=== PATIENT | female | born 2000 | race Caucasian/White ===

== ENCOUNTER → 2019-08-18 | Emergency (ER) | payer MEDICAID | END | disposition left against medical advice (07) | LOC: ER 12:08 | DX: Z00.00 Encounter for general adult medical examination without abnormal findings (principal); Z53.21 Procedure and treatment not carried out due to patient leaving prior to being seen by health care provider ==

== ENCOUNTER 2020-03-14 10:58 | Observation (INO) | payer BC, MEDICAID ==
[2020-03-14] MEDS ORDERED: PREN-96 PO (12:33)
== END 2020-03-14 13:05 | disposition home or self-care (01) | DRG 833 ==
LOC: LDRP 10:58
PROVIDERS: ADMIT Specialist; ATTEND Specialist
DX: O36.5930 Maternal care for other known or suspected poor fetal growth, third trimester, not applicable or unspecified (principal); Z3A.36 36 weeks gestation of pregnancy
CPT/HCPCS: 59025; 76818; 81002; G0378

== ENCOUNTER 2020-03-19 08:31 | Observation (INO) | payer BC ==
[~2020-03-19 08:31] MED LIST: PREN-96 PO
== END 2020-03-19 10:16 | disposition home or self-care (01) | DRG 833 ==
LOC: LDRP 08:31
PROVIDERS: ADMIT Specialist; ATTEND Specialist
DX: O36.5930 Maternal care for other known or suspected poor fetal growth, third trimester, not applicable or unspecified (principal); Z3A.37 37 weeks gestation of pregnancy
CPT/HCPCS: 59025; 76818; 81002; G0378

== ENCOUNTER 2020-03-22 08:57 | Observation (INO) | payer BC | END 2020-03-22 10:57 | disposition home or self-care (01) | DRG 833 | LOC: LDRP 08:57 | PROVIDERS: ADMIT Specialist; ATTEND Specialist | DX: O36.5930 Maternal care for other known or suspected poor fetal growth, third trimester, not applicable or unspecified (principal); O62.9 Abnormality of forces of labor, unspecified; O26.893 Other specified pregnancy related conditions, third trimester; N89.8 Other specified noninflammatory disorders of vagina; Z3A.37 37 weeks gestation of pregnancy | CPT/HCPCS: 59025; 76818; 81002; G0378 ==

== ENCOUNTER 2020-03-25 10:50 | Observation (INO) | payer BC | END 2020-03-25 12:20 | disposition home or self-care (01) | DRG 833 | LOC: LDRP 10:50 | PROVIDERS: ADMIT Specialist; ATTEND Specialist | DX: O36.5930 Maternal care for other known or suspected poor fetal growth, third trimester, not applicable or unspecified (principal); O62.9 Abnormality of forces of labor, unspecified; Z3A.37 37 weeks gestation of pregnancy; Z87.891 Personal history of nicotine dependence | CPT/HCPCS: 59025; 76818; 81002; G0378 ==

== ENCOUNTER 2020-03-28 08:58 | Observation (INO) | payer BC | END 2020-03-28 10:07 | disposition home or self-care (01) | LOC: LDRP 08:58 | PROVIDERS: ADMIT Specialist; ATTEND Specialist | DX: O36.5930 Maternal care for other known or suspected poor fetal growth, third trimester, not applicable or unspecified (principal); O34.63 Maternal care for abnormality of vagina, third trimester; N89.8 Other specified noninflammatory disorders of vagina; Z87.891 Personal history of nicotine dependence; Z3A.38 38 weeks gestation of pregnancy | CPT/HCPCS: 59025; 76818; 81002; G0378 ==

== ENCOUNTER 2020-04-02 09:32 | Observation (INO) | payer BC ==
[~2020-04-02] VITALS: Ht 144.8 cm; Wt 68.0 kg
[2020-04-02] MEDS ORDERED: ACETAMINOPHEN 325 MG TAB PO ONE (10:45)
== END 2020-04-02 11:20 | disposition home or self-care (01) ==
LOC: LDRP 09:32
PROVIDERS: ADMIT Specialist; ATTEND Specialist
DX: O36.5931 Maternal care for other known or suspected poor fetal growth, third trimester, fetus 1 (principal); O26.893 Other specified pregnancy related conditions, third trimester; R51 Headache; Z3A.39 39 weeks gestation of pregnancy
CPT/HCPCS: 59025; 76818; 81002; G0378

== ENCOUNTER 2020-04-05 08:42 | Observation (INO) | payer BC | END 2020-04-05 10:00 | disposition home or self-care (01) | LOC: LDRP 08:42 | PROVIDERS: ADMIT Specialist; ATTEND Specialist | DX: O36.5930 Maternal care for other known or suspected poor fetal growth, third trimester, not applicable or unspecified (principal); O26.893 Other specified pregnancy related conditions, third trimester; R51 Headache; Z3A.39 39 weeks gestation of pregnancy | CPT/HCPCS: 59025; 76818; G0378; 81002 ==

== ENCOUNTER 2020-04-09 14:07 | Observation (INO) | payer BC | END 2020-04-09 15:20 | disposition home or self-care (01) | LOC: LDRP 14:07 | PROVIDERS: ADMIT Specialist; ATTEND Specialist | DX: O36.5930 Maternal care for other known or suspected poor fetal growth, third trimester, not applicable or unspecified (principal); Z3A.40 40 weeks gestation of pregnancy | CPT/HCPCS: 59025; 76818; 81002; G0378 ==

== ENCOUNTER 2020-04-11 13:20 | Observation (INO) | payer BC | END 2020-04-11 16:15 | disposition home or self-care (01) | LOC: LDRP 13:20 | PROVIDERS: ADMIT Specialist; ATTEND Specialist | DX: O36.5930 Maternal care for other known or suspected poor fetal growth, third trimester, not applicable or unspecified (principal); O48.0 Post-term pregnancy; Z3A.40 40 weeks gestation of pregnancy | CPT/HCPCS: 59025; 76818; 81002; G0378 ==

== ENCOUNTER 2020-04-12 09:06 | Observation (INO) | payer BC | END 2020-04-12 10:34 | disposition home or self-care (01) | LOC: LDRP 09:06 | PROVIDERS: ADMIT Specialist; ATTEND Specialist | DX: O48.0 Post-term pregnancy (principal); Z3A.40 40 weeks gestation of pregnancy | CPT/HCPCS: 59025; 76818; 81002; G0378 ==

== ENCOUNTER 2020-04-14 05:02 | Inpatient (IN) | payer BC ==
[~2020-04-14] VITALS: Ht 144.8 cm; Wt 68.0 kg
[2020-04-14] MEDS ORDERED: LACT. RINGERS/OXYTOCIN 20UNITS 1,000 ML IV SCH (05:17)
[2020-04-14] MEDS ORDERED: DERMOPLAST 60ML BOTTLE TOP PRN (05:30)
[2020-04-14] MEDS ORDERED: PHISODERM TOP SOLN 240ML BTL TOP PRN (05:30)
[2020-04-14] MEDS ORDERED: LIDOCAINE 2%HCL (LOCAL ANESTH.) INJ 20ML MDV ID ONE (05:30)
[2020-04-14] MEDS ORDERED: WITCH HAZEL-GLYCERIN PAD TOP PRN (05:30)
[2020-04-14] MEDS: LACTATED RINGER'S 1,000 ML IV SCH ×3 (05:32→23:47)
[2020-04-14 05:52] LABS: Basophils # (auto) 0 10 ^3/uL (0-0.2); Basophils % (auto) 0.4 % (0.0-2.0); Eosinophils # (auto) 0 10 ^3/uL (0-0.8); Eosinophils % (auto) 0.5 % (0.0-7.0); Hematocrit 38.5 % (36.0-46.0); Hemoglobin 13.1 g/dL (12.2-16.2); Lymphocytes # (auto) 1.8 10 ^3/uL (0.4-5.4); Lymphocytes % (auto) 19.2 % (10.0-50.0); Mean Corpuscular Hemoglobin 31.8 pg (28.0-32.0); Mean Corpuscular Hgb Conc. 34.1 g/dL (32.0-36.0); Mean Corpuscular Volume 93.1 fL (80.0-100.0); Monocytes # (auto) 0.6 10 ^3/uL (0-1.3); Monocytes % (auto) 6.9 % (0.0-12.0); Neutrophils # (auto) 6.9 10 ^3/uL (1.6-8.6); Nucleated Red Blood Cells % 0.1 %; Platelet Count (auto) 258 10^3/uL (140-450); Red Blood Cells 4.13 10^6/uL (4.0-5.20); Red Cell Distribution Width 12.7 % (11.8-14.3); White Blood Cell 9.4 10^3/uL (4.4-10.8)
[2020-04-14 05:58] LABS: Urine Bacteria NONE SEEN /hpf (None Seen); Urine Blood Negative /uL (Negative); Urine Specific Gravity 1.012 (1.001-1.035); Urine WBC <1 /hpf (0 - 5)
[2020-04-14 06:08] LABS: INR 0.9 (0.9-1.15); Partial Thromboplastin Time 25.2 sec (23.0-31.2)
[2020-04-14 06:20] LABS: Calcium 8.7 mg/dL (8.5-10.1); Potassium 3.4 mmol/L (3.5-5.1)
[2020-04-14 06:22] LABS: Alcohol, Urine < 3.0 mg/dL (0-10); Amphetamine Screen, Urine NEGATIVE (NEGATIVE); Barbiturate Scree,Urine NEGATIVE (NEGATIVE); Benzodiazephine Screen, Urine NEGATIVE (NEGATIVE); Cannabinoid Screen, Urine POSITIVE (NEGATIVE); Cocaine Screen, Urine NEGATIVE (NEGATIVE); Opiate Scree,Urine NEGATIVE (NEGATIVE); Phencyclidine Screen, Urine NEGATIVE (NEGATIVE)
[2020-04-14 06:24] LABS: BUN/Creatinine Ratio 17.7; Bilirubin, Total 0.3 mg/dL (0.2-1.0); Total Protein 6.9 g/dL (6.4-8.2); Uric Acid 3.2 mg/dL (2.6-6.0)
[2020-04-14] MEDS: miSOPROStol 50 MCG per PRE-CUT 1/2 TAB PO PRN ×2 (07:38→11:48)
[2020-04-14] MEDS ORDERED: LACTATED RINGER'S 1,000 ML IV ONE (18:41)
[2020-04-14] MEDS ORDERED: ePHEDrine SULFATE 50 MG/ML AMP IV ONE ×2 (18:45→20:15)
[2020-04-14] MEDS ORDERED: NALOXONE HCL 0.4 MG/ML VIAL IV ONE ×2 (18:45→20:15)
[2020-04-14] MEDS ORDERED: ROPIVACAINE HCL 100 ML EPI SCH ×3 (18:45→20:15)
[2020-04-14] MEDS ORDERED: SODIUM CHLORIDE 0.9% 500 ML IV PRN (20:09)
[2020-04-15] MEDS ORDERED: TERBUTALINE SULFATE 1 MG/ML 1ML VIAL SC ONE (02:27)
[2020-04-15] MEDS ORDERED: fentaNYL CITRATE 100 MCG/2 ML VL ONE ×2 (04:04→04:13)
[2020-04-15] MEDS ORDERED: MIDAZOLAM HCL 1MG/1ML-2 ML VIAL ONE (04:07)
[2020-04-15] MEDS ORDERED: hydrALAZINE HCL 20 MG/ML VL IV PRN (04:45)
[2020-04-15] MEDS ORDERED: HYDROmorphone HCL 2 MG/ML VL IV PRN (04:45)
[2020-04-15] MEDS ORDERED: ACETAMINOPHEN IV 1000 MG/100ML (10MG/ML) IV PRN (04:45)
[2020-04-15] MEDS ORDERED: ONDANSETRON HCL 4 MG/2 ML VIAL IV PRN ×2 (04:45)
[2020-04-15] MEDS ORDERED: GUM (CHEWING) 1 GUM CHEW CHEW ONE (04:45)
[2020-04-15] MEDS ORDERED: ceFAZolin 1GM/50ML 50 ML IV SCH (04:45)
[2020-04-15] MEDS ORDERED: ePHEDrine SULFATE 50 MG/ML AMP IV PRN (04:45)
[2020-04-15] MEDS: HYDROmorphone HCL 2 MG/ML VL IV PRN ×4 (04:50→05:20)
[2020-04-15 07:22] VITALS: BP 115/59
[2020-04-15 08:25] VITALS: BP 113/61
[2020-04-15] MEDS: LACTATED RINGER'S 1,000 ML IV SCH ×3 (08:30→12:20)
[2020-04-15 10:30] VITALS: BP 116/63
[2020-04-15] MEDS: KETOROLAC TROMETH 30 MG/ML 1ML VIAL IV PRN ×3 (10:45→22:32)
[2020-04-15] MEDS: ceFAZolin 1GM/50ML 50 ML IV SCH ×2 (12:15→19:37)
[2020-04-15 15:29] VITALS: BP 122/71
[2020-04-15 19:00] VITALS: BP 134/78
--- NOTE | 2020-04-15 20:57 | NUR ---
Ambulation: Patient OOB with standby assistance by RN to chair at bedside. Clean gown provided and bed linen changed. Patient ambulated back to bed with steady gait and no distress noted.
[2020-04-15 23:00] VITALS: BP 124/75
[2020-04-16 02:59] VITALS: BP 139/46
[2020-04-16] MEDS: ceFAZolin 1GM/50ML 50 ML IV SCH (03:46)
[2020-04-16] MEDS ORDERED: KETOROLAC TROMETH 30 MG/ML 1ML VIAL IV ONE (04:30)
--- NOTE | 2020-04-16 04:45 | NUR ---
Stevens catheter dc'd Order to discontinue stevens catheter. Stevens dc'd with clean technique following deflation of balloon. Patient tolerated well with no complaints of pain. Continue care.
[2020-04-16 05:06] LABS: RPR Non Reactive (Non Reactive)
[2020-04-16 07:01] VITALS: BP 113/70
--- NOTE | 2020-04-16 07:07 | NUR ---
Ambulation: Patient OOB with standby assistance by RN. Patient ambulated to bathroom with steady gait. Patient able to void without difficulty. [facility] teaching provided with returned demonstration by patient. Patient ambulated back to bed with steady gait and no distress noted.
[2020-04-16 07:23] LABS: Basophils # (auto) 0 10 ^3/uL (0-0.2); Basophils % (auto) 0.2 % (0.0-2.0); Eosinophils # (auto) 0 10 ^3/uL (0-0.8); Eosinophils % (auto) 0.1 % (0.0-7.0); Hematocrit 30.6 % (36.0-46.0); Hemoglobin 10.7 g/dL (12.2-16.2); Lymphocytes # (auto) 1.4 10 ^3/uL (0.4-5.4); Lymphocytes % (auto) 10.8 % (10.0-50.0); Mean Corpuscular Hemoglobin 32.6 pg (28.0-32.0); Mean Corpuscular Volume 93.1 fL (80.0-100.0); Monocytes # (auto) 0.8 10 ^3/uL (0-1.3); Neutrophils # (auto) 10.4 10 ^3/uL (1.6-8.6); Neutrophils % (auto) 82.9 % (37.0-80.0); Platelet Count (auto) 227 10^3/uL (140-450); Red Blood Cells 3.29 10^6/uL (4.0-5.20); White Blood Cell 12.6 10^3/uL (4.4-10.8)
[2020-04-16] MEDS ORDERED: HYDROcodone-ACET 5/325MG TAB PO PRN (07:30)
[2020-04-16] MEDS ORDERED: BISACODYL 10 MG RECT SUPP PR PRN (07:30)
[2020-04-16] MEDS: HYDROcodone-ACET 5/325MG TAB PO PRN ×3 (08:47→21:35)
[2020-04-16] MEDS: DOCUSATE SOD 100 MG CAP PO SCH ×2 (10:03→21:34)
[2020-04-16] MEDS: DOCUSATE CALCIUM 240 MG CAP PO SCH (10:03)
[2020-04-16 10:40] VITALS: BP 103/59
[2020-04-16] MEDS: SIMETHICONE 80 MG CHEWABLE TABLET PO SCH ×3 (12:02→21:34)
[2020-04-16] MEDS: IBUPROFEN 800 MG TAB PO PRN (12:03)
[2020-04-16 15:10] VITALS: BP 120/58
--- NOTE | 2020-04-16 16:07 | NUR ---
REVIEWED VITALS Addendum: 04/16/20 at 1607 by Yvan Ruano RN Amended: Links added.
[2020-04-16 19:00] VITALS: BP 121/61
[2020-04-16 22:40] VITALS: BP 121/70
[2020-04-17] VITALS (7 sets, daily range): BP systolic 121–129; BP diastolic 57–90
[2020-04-17] MEDS: HYDROcodone-ACET 5/325MG TAB PO PRN ×2 (05:30→17:53)
[2020-04-17] MEDS: SIMETHICONE 80 MG CHEWABLE TABLET PO SCH ×4 (05:30→22:16)
[2020-04-17] MEDS: IBUPROFEN 800 MG TAB PO PRN ×2 (10:16→22:16)
[2020-04-17] MEDS: DOCUSATE CALCIUM 240 MG CAP PO SCH (10:16)
[2020-04-17] MEDS: DOCUSATE SOD 100 MG CAP PO SCH ×2 (10:16→22:16)
--- NOTE | 2020-04-17 13:51 | NUR ---
assessment Patient is a 19 year old female who is alert and oriented. Per consult patient is positive for THC and baby is negative. Patient informed me she smoked marijuana twice a week before she delivered due to a real bad headache. Patient informed me she smoked prior to and quit during the . Patient informed me she does not plan to continue to smoke due to she wants to breast feed. FOB was at bedside Jose A Crowder [birth year]. Per Jose A he will be very involved with the baby. Patient informed me she has great family and social support. Patient informed me she has all provisions for the baby. Patient is bonding with baby. I informed patient I would be reporting to CPS. Patient verbalized understanding. Addendum: 04/17/20 at 1400 by Ella Garay Amended: Links added.
--- NOTE | 2020-04-17 19:28 | NUR ---
Ambulation: Patient OOB ambulating in the hallway while pushing in open crib, gait steady. No signs of discomfort noted.
[2020-04-18 03:15] VITALS: BP 119/68
[2020-04-18] MEDS: SIMETHICONE 80 MG CHEWABLE TABLET PO SCH (05:41)
[2020-04-18] MEDS: IBUPROFEN 800 MG TAB PO PRN (05:41)
[2020-04-18 07:30] VITALS: BP 125/76
[2020-04-18 13:15] VITALS: BP 129/76
--- NOTE | 2020-04-18 13:15 | NUR ---
Discharge: Discharge instructions given as ordered. Pt encouraged to follow up with CHOREOGRAPHY DIRECTOR as instructed on 05/02/20 @10:30am. All questions and concerns addressed. Patient verbalized understanding. Medication reconciliation completed and copy given to patient. Patient encouraged to prepare to depart unit. Addendum: 04/18/20 at 1346 by GENESIS GONZALEZ RN Wrong time noted, Discharge time was at 1245 Addendum: 04/18/20 at 1347 by GENESIS GONZALEZ RN Wrong time noted, the right time that instructions were given was 1215
--- NOTE | 2020-04-18 13:38 | NUR ---
Discharge: Patient ambulated to vehicle with all personal belongings, accompanied by staff and family member. No distress noted at time of departure, no adverse changes in status since initial assessment. Addendum: 04/18/20 at 1347 by GENESIS GONZALEZ RN Wrong time noted, actual discharge time was 1238
[2020-04-18 13:48] VITALS: BP 129/76
== END 2020-04-18 12:38 | disposition home or self-care (01) | DRG 788 ==
LOC: LDRP 05:02
PROVIDERS: ADMIT Specialist; ATTEND Specialist
PROC: 10D00Z1 Extraction of Products of Conception, Low, Open Approach (ICD-10-PCS; principal; 2020-04-15 03:35)
DX: O77.0 Labor and delivery complicated by meconium in amniotic fluid (principal); O76 Abnormality in fetal heart rate and rhythm complicating labor and delivery; O62.1 Secondary uterine inertia; Z20.828 Contact with and (suspected) exposure to other viral communicable diseases; Z37.0 Single live birth; Z3A.40 40 weeks gestation of pregnancy
CPT/HCPCS: 36415; 59025; 62282; 80053; 80307; 81001; 84112; 84550; 85025; 85610; 85730; 86592; 86850; 86900; 86901; 86920; 94760; 96360; 96361; 96365; 96366; 96372; 96374; 96375; G0378; J0690; J1885; J2250; J2590

== ENCOUNTER 2021-04-03 07:17 | Emergency (ER) | payer BC, MEDICAID ==
[~2021-04-03] VITALS: Ht 144.8 cm; Wt 52.2 kg
[2021-04-03 07:24] VITALS: BP 122/77
== END 2021-04-03 08:08 | disposition home or self-care (01) ==
LOC: ER 07:17
DX: R07.89 Other chest pain (principal); Z79.899 Other long term (current) drug therapy; K21.9 Gastro-esophageal reflux disease without esophagitis; Z98.890 Other specified postprocedural states
CPT/HCPCS: 71046; 93005